=== PATIENT | female | born 1995 | race Caucasian/White ===

== ENCOUNTER 2018-04-05 18:38 | Emergency (ER) | payer BC, OTHER ==
[~2018-04-05] VITALS: Ht 170.2 cm; Wt 78.5 kg
[~2018-04-05 18:38] MED LIST: MECL1TAB42 PO
[2018-04-05 18:45] VITALS: TEMP 36.9; Ht 170.2 cm; Wt 78.5 kg
[2018-04-05] MEDS ORDERED: ONDANSETRON INJ 2 MG/ML 2 ML VIAL IV STA (19:00)
[2018-04-05] MEDS ORDERED: SODIUM CHLORIDE 0.9% 1000ML 1,000 ML IV STA (19:00)
[2018-04-05] MEDS ORDERED: MECLIZINE HCL 25 MG TAB PO STA (19:00)
[2018-04-05] MEDS ORDERED: DIAZEPAM INJ 5 MG/ML 2 ML CARP IV STA (19:06)
[2018-04-05] MEDS ORDERED: ANT25 PO (19:15)
[2018-04-05 19:23] VITALS: O2SAT 98
[2018-04-05 19:30] LABS: BASO % 0.4 %; BASO ABS # 0.03 K/uL (0-0.2); EOS ABS # 0.07 K/uL (0-0.5); HEMATOCRIT 42.8 % (37-47); HEMOGLOBIN 14.7 g/dL (12.0-16.0); IG# 0.01 K/uL (0.00-0.02); LYMPH ABS # 1.77 K/uL (1.2-3.4); MEAN CELL VOLUME 91.8 fL (80-100); MEAN CORPUSCULAR HEMOGLOBIN 31.5 pg (25-34); MEAN CORPUSCULAR HGB CONC 34.3 g/dl (32-36); MEAN PLATELET VOLUME 8.6 fL (7.4-10.4); MONO % 10.6 %; MONO ABS # 0.75 K/uL (0.11-0.59); NEUT % 62.9 %; NEUT ABS # 4.45 K/uL (1.4-6.5); PLATELET COUNT 255 K/uL (130-400); RED CELL DISTRIBUTION WIDTH CV 11.7 % (11.5-14.5); RED CELL DISTRIBUTION WIDTH SD 39.4 fL (36.4-46.3); WHITE BLOOD COUNT 7.08 K/uL (4.8-10.8)
[2018-04-05] MEDS ORDERED: DIAZEPAM 5 MG/ML INJ 10ML VIAL ONE (19:31)
[2018-04-05 19:58] LABS: CALCIUM 9.1 mg/dl (8.5-10.1); CREATININE 0.86 mg/dl (0.60-1.20); POTASSIUM 3.9 mmol/L (3.5-5.1)
--- NOTE | 2018-04-05 20:33 | EMERGENCY ROOM VISIT NOTE ---
History Report prepared by Margaret: Wendy Bailey Under the Supervision of: Dr. Tee Arzate M.D. First contact with patient: 18:48 Chief Complaint: VERTIGO Stated Complaint: VERTIGO,DIZZINESS History of Present Illness The patient is a 22 year old female who presents to the Emergency Room with complaints of constant vertigo beginning sometime last week. She notes she feels as though room is spinning, and is experiencing intermittent difficulty hearing or sensitivity of hearing. The patient states she feels as though she is going to black out, but not has not completely lost consciousness. She notes her symptoms worsen with movement and are relieved when laying down and closing eyes. The patient mentions she is experiencing nausea and vomited last week. She reports fatigue, shaking of her hands, and pressure in her forehead area. She notes Meclizine did not relieve her symptoms. Pt denies LOC, fevers, chills, diaphoresis, neck pain, chest pain, breathing difficulties, abdominal pain, back pain, melena, hematochezia, urinary symptoms, numbness, weakness, lymphadenopathy, rash, numbness, or other complaints. The patient reports she occasionally experiences these symptoms around when she has her period, but can usually work through it. She notes her PCP, Dr. Barlow, gave her a stronger BC pill which helped improve her symptoms for a time. The patient states she had a similar episode a few years back, but her current symptoms are more severe. Source of History: patient Onset: sometime last week Position: head Quality: other (vertigo) Timing: constant Modifying Factors (Worsening): movement Modifying Factors (Relieving): other (relieved when laying down with eyes closed, not relieved by Meclizine) Associated Symptoms: + nausea, + vomiting (last week), + fatigue Note: Associated symptoms: intermittent difficulty hearing or sensitivity of hearing, shaking of hands, pressure in forehead area, feeling as though she will black out. Review of Systems See HPI for pertinent positives and negatives. A total of ten systems were reviewed and were otherwise negative. Past Medical & Surgical Medical Problems: (1) Bronchitis Surgical Problems: (1) Hx of wisdom tooth extraction Family History FHx: breast cancer FHx: diabetes mellitus FHx: gallbladder disease FHx: hypertension Social History Smoking Status: Never Smoker Alcohol Use: none Drug Use: none Marital Status: in relationship Occupation Status: employed Current/Historical Medications Scheduled Control Pills ( Control Pills), 1 TAB PO DAILY Scheduled PRN Lorazepam (Ativan), 1 MG PO Q6H PRN for Dizziness or Vertigo Meclizine HCl (Meclizine HCl), 25 MG PO TID PRN for Dizziness or Vertigo Allergies Uncoded Allergies: BLEACH (Allergy, Unknown, Skin rash, 04/05/18) Physical Exam Vital Signs Date Time Temp Pulse Resp B/P (MAP) Pulse Ox O2 Delivery O2 Flow Rate FiO2 04/05/18 21:35 78 20 116/72 98 04/05/18 20:00 66 18 124/88 98 Room Air 04/05/18 19:44 56 04/05/18 19:23 98 Room Air 04/05/18 18:45 36.9 64 20 146/87 96 Room Air Physical Exam GENERAL: Awake, alert, well appearing, no distress HENT: Normocephalic, atraumatic. TM's normal. Oropharynx unremarkable. EYES: PERRL. EOMI. Normal conjunctiva. Sclera non-icteric. NECK: Supple. No nuchal rigidity. FROM. No bruit. RESPIRATORY: Breath sounds equal. No wheezes. No rhonchi. Normal respiratory effort. CARDIAC: Normal rate. Regular rhythm. No murmurs. No rubs. No JVD. GI: Soft, non distended. No tenderness to palpation. No rebound or guarding. No masses. RECTAL: Deferred. MUSCULOSKELETAL: Unremarkable. No edema. No discoloration. Gross motor strength symmetric. NEURO: Cranial nerves 2-12 grossly intact. Normal sensorium. No sensory or motor deficits noted. Speech normal. No pronator drift. Normal [id number]. Mildly positive Hallpike with looking to the left. No pathologic nystagmus. Lateral nystagmus noted. SKIN: No rash or jaundice noted. LYMPH: No adenopathy. Medical Decision & Procedures Laboratory Results 04/05/18 19:20 Red Blood Count 4.66, Mean Corpuscular Volume 91.8, Mean Corpuscular Hemoglobin 31.5, Mean Corpuscular Hemoglobin Concent 34.3, Mean Platelet Volume 8.6, Neutrophils (%) (Auto) 62.9, Lymphocytes (%) (Auto) 25.0, Monocytes (%) (Auto) 10.6, Eosinophils (%) (Auto) 1.0, Basophils (%) (Auto) 0.4, Neutrophils # (Auto ) 4.45, Lymphocytes # (Auto) 1.77, Monocytes # (Auto) 0.75, Eosinophils # (Auto ) 0.07, Basophils # (Auto) 0.03 04/05/18 19:20 Test 04/05/18 19:20 White Blood Count 7.08 K/uL (4.8-10.8) Red Blood Count 4.66 M/uL (4.2-5.4) Hemoglobin 14.7 g/dL (12.0-16.0) Hematocrit 42.8 % (37-47) Mean Corpuscular Volume 91.8 fL (80-100) Mean Corpuscular Hemoglobin 31.5 pg (25-34) Mean Corpuscular Hemoglobin Concent 34.3 g/dl (32-36) Platelet Count 255 K/uL (130-400) Mean Platelet Volume 8.6 fL (7.4-10.4) Neutrophils (%) (Auto) 62.9 % Lymphocytes (%) (Auto) 25.0 % Monocytes (%) (Auto) 10.6 % Eosinophils (%) (Auto) 1.0 % Basophils (%) (Auto) 0.4 % Neutrophils # (Auto) 4.45 K/uL (1.4-6.5) Lymphocytes # (Auto) 1.77 K/uL (1.2-3.4) Monocytes # (Auto) 0.75 K/uL (0.11-0.59) Eosinophils # (Auto) 0.07 K/uL (0-0.5) Basophils # (Auto) 0.03 K/uL (0-0.2) RDW Standard Deviation 39.4 fL (36.4-46.3) RDW Coefficient of Variation 11.7 % (11.5-14.5) Immature Granulocyte % (Auto) 0.1 % Immature Granulocyte # (Auto) 0.01 K/uL (0.00-0.02) Anion Gap 6.0 mmol/L (3-11) Est Creatinine Clear Calc Drug Dose 108.9 ml/min Estimated GFR () 109.6 Estimated GFR (Non- 94.6 BUN/Creatinine Ratio 15.5 (10-20) Calcium Level 9.1 mg/dl (8.5-10.1) Thyroid Stimulating Hormone (TSH) 0.877 uIu/ml (0.300-4.500) Human Chorionic Gonadotropin, Qual NEG (NEG) Laboratory results reviewed by me Medications Administered Medications (Trade) Dose Ordered Sig/Alok Route Start Time Stop Time Status Last Admin Dose Admin Meclizine HCl (Antivert Tab) 25 mg NOW STAT PO 04/05/18 19:00 04/05/18 19:02 DC 04/05/18 19:32 25 MG Sodium Chloride 1,000 ml @ 999 mls/hr Q1H1M STAT IV 04/05/18 19:00 04/05/18 20:00 DC 04/05/18 19:33 999 MLS/HR Ondansetron HCl (Zofran Inj) 4 mg NOW STAT IV 04/05/18 19:00 04/05/18 19:02 DC 04/05/18 19:32 4 MG Diazepam (Valium Inj) 5 mg STK-MED ONCE .ROUTE 04/05/18 19:31 04/05/18 19:32 DC 04/05/18 19:33 5 MG Lorazepam (Ativan 1MG Home Pack) 1 homepack UD ONCE PO 04/05/18 21:15 04/05/18 21:17 DC 04/05/18 21:29 1 HOMEPACK Ondansetron HCl (ZOFRAN ODT 4MG Home Pack) 1 homepack UD ONCE PO 04/05/18 21:15 04/05/18 21:17 DC 04/05/18 21:29 1 HOMEPACK ECG Per My Interpretation Rate (beats per minute): 59 Rhythm: sinus bradycardia Findings: RBBB (incomplete), other (no ST elevation or depression. no PACs. no PVCs.) ED Course 1850: The patient was evaluated in room B3B. A complete history and physical exam was performed. 1899: Ordered Zofran Inj 4 mg IV, Sodium Chloride 1000 ml @ 999 mls/hr IV, Antivert Tab 25 mg PO. 1905: Ordered Valium Inj 5 mg IV. 2033: Upon reevaluation, the patient is feeling better. 2114: Ordered Ondansetron HCl 1 homepack PO, Lorazepam 1 homepack PO. 2119: I reevaluated the patient. Discussed results and discharge instructions: she verbalized understanding and agreement. The patient is ready for discharge. Medical Decision Prior records/ancillary studies reviewed. Triage Nursing notes reviewed and agree them. The patient's history was concerning for dizziness. Differential diagnosis: Etiologies such as benign positional vertigo, tumor, infection, hypoglycemia, electrolyte abnormalities, cardiac sources, intracerebral event, toxicologic, neurologic, as well as others were entertained. Physical examination: As above. No pathologic nystagmus. ER treatment provided: IV hydration over one hour IV Zofran Oral meclizine IV Valium 5 mg On reassessment the patient felt well. She ambulated without difficulty. Diagnostics interpretation by me: ECG: Normal sinus rhythm without ischemic change or evidence of dysrhythmia. Laboratory studies: The labs revealed a normal CBC and chemistry panel. Imaging studies: Deferred By the evaluation outlined above other emergent etiologies such as those listed in the differential, as well as others, were deemed relatively unlikely. The patient has had intermittent dizziness on and off for several years. By the history and physical examination this seems to be most consistent with a positional vertigo. She has been prescribed meclizine by her primary physician as well as the emergency department in the past. Prior CT imaging did not reveal any abnormalities. As the patient responded very well to intervention here advanced diagnostic imaging was felt to be unnecessary. I discussed conservative management with her. The patient feels comfortable. If she worsens in any way or symptoms persist she will come back to the emergency department. I did discuss referral to her primary physician as well as ENT given the duration of her paroxysmal symptoms. She may benefit from an vestibular rehab program. I gave my usual and customary discussion regarding this issue. The patient was educated about the findings as listed above. All questions were answered and the patient was pleased with the treatment. Return instructions were outlined and the patient was discharged in stable condition. The patient was referred to her primary physician for follow-up for a recheck of the current condition. [place] Drug Monitoring Program Search Results: patient reviewed within database, no issues identified Medication Reconcilliation Current Medication List: was personally reviewed by me Blood Pressure Screening Patient's blood pressure: Normal blood pressure Blood pressure disposition: Did not require urgent referral Impression Primary Impression: Dizziness Scribe Attestation The scribe's documentation has been prepared under my direction and personally reviewed by me in its entirety. I confirm that the note above accurately reflects all work, treatment, procedures, and medical decision making performed by me. Departure Information Dispostion Home / Self-Care Prescriptions Lorazepam (ATIVAN) 1 Mg Tab 1 MG PO Q6H Y for Dizziness or Vertigo, #10 TAB Prov: Tee Arzate MD 04/05/18 Referrals Sneha Barlow D.O. (PCP) Forms HOME CARE DOCUMENTATION FORM, IMPORTANT VISIT INFORMATION, WORK / SCHOOL INSTRUCTIONS Patient Instructions My [facility] Additional Instructions DIZZINESS INSTRUCTIONS: DO NOT drive, drink alcohol, operate machinery, or perform dangerous activities today. You were given medications in the ER that can affect your ability to safely function or operate a vehicle. You should not drive or perform any dangerous activities until your symptoms resolve. Ativan 1mg: Take 1 pill every 6-8 hours as needed for dizziness or vertigo. Avoid alcohol, operating machinery or dangerous equipment, working on ladders or roofs, DRIVING, or situations where being under the influence may be dangerous Continue your Meclizine 25mg: Take 1 pill every 8 hours as needed for dizziness or vertigo. Avoid alcohol, operating machinery or dangerous equipment, working on ladders or roofs, DRIVING, or situations where being under the influence may be dangerous Zofran(odansetron) tablets 4mg: Take one and allow it to dissolve in your mouth every four to six hours as needed for nausea or vomiting. Rest and drink plenty of fluids as tolerated. Continue current medications. If you have nausea or vomiting: Once your stomach is settled start with a clear liquid diet (jello, soup broth, etc.) and then advance as tolerated. You should avoid full, heavy meals for about 24 hrs from the time your symptoms resolved. Return to the ER immediately for worsening or persistent dizziness, vomiting, headache, fevers, chest pains, difficulty breathing, black or bloody stools, slurred speech, numbness, weakness, visual changes, worsening of your condition , or as needed. Follow up with your primary physician in 1-2 days for a recheck of your current condition. Follow-up with ENT regarding the recurrent dizziness. The number is listed below under Dr. Gar.
[2018-04-05] MEDS ORDERED: ATIVAN 1MG HOMEPACK PO ONE (21:15)
[2018-04-05] MEDS ORDERED: ONDANSETRON HOME PACK 4MG OD TAB PO ONE (21:15)
[2018-04-05] MEDS ORDERED: ATV/1 PO (21:20)
[2018-04-05 21:35] VITALS: BP 116/72; PULSE 78; O2SAT 98
[2018-04-05] MEDS ORDERED: BCPILLS PO (23:52)
== END 2018-04-05 21:36 | disposition home or self-care (01) ==
LOC: C.EDB 18:39
DX: R42 Dizziness and giddiness (principal); R53.1 Weakness; R51 Headache; Z79.3 Long term (current) use of hormonal contraceptives; Z91.048 Other nonmedicinal substance allergy status

== ENCOUNTER → 2018-04-20 | Outpatient (CLI) | payer OTHER ==
[~2018-04-20] MED LIST changes: +ANT25 PO; +BCPILLS PO; +GADAVIST IV PRN; -MECL1TAB42 PO
--- NOTE | 2018-04-20 13:10 | DIAGNOSTIC IMAGING REPORT ---
BRAIN COMBO FOR IAC HISTORY: 22 years-old Female R42 VertigoPATIENT HAS NONSPECIFIC VERTIGO. PLEASE RULE OUT ANY acute dizziness with gait disturbance COMPARISON: None available TECHNIQUE: Multiplanar multisequence MRI of the brain was obtained both with and without the use of 7.5 amount Gadavist utilizing internal auditory canal protocol FINDINGS: Large field of view medical care manager localizer images demonstrate no gross abnormality. No restricted diffusion to suggest acute or subacute infarction. Sagittal T1 images are mildly motion degraded. Corpus callosum, brainstem, optic chiasm, pituitary and pineal glands appear unremarkable on the sagittal T1 series. No cerebellar tonsillar herniation. No acute intracranial hemorrhage, midline shift, abnormal extra-axial collections, hydrocephalus or intracranial mass. The 7th and 8th cranial nerves appear unremarkable bilaterally. Vascular loop of the anterior inferior cerebellar artery extends less than 50% into the right internal auditory canal. No cerebellar pontine angle mass lesion identified. Bilateral 5th cranial nerves are within normal limits. There is no abnormal intra-axial or extra-axial enhancement identified. Orbits are unremarkable. Mastoid air cells are generally clear. Minimal polypoid mucosal thickening about the inferior left maxillary sinus. The remaining paranasal sinuses are clear. The skull and soft tissues are within normal limits. IMPRESSION: 1. No acute intracranial abnormality or abnormal enhancement identified. 2. Unremarkable appearance of the bilateral 7th and 8th cranial nerves. 3. Minimal left maxillary sinus disease. The above report was generated using voice recognition software. It may contain grammatical, syntax or spelling errors. Electronically signed by: Delon Carter M.D. 04/20/2018 1:08 PM Dictated Date/Time: 04/20/2018 12:59 PM
== END | disposition home or self-care (01) ==
LOC: C.MRI 11:33
PROVIDERS: ATTEND Physician Assistant
DX: R42 Dizziness and giddiness (principal)

== ENCOUNTER 2024-03-06 11:00 | Inpatient (IN) ==
[2024-03-06] MEDS ORDERED: LIDOCAINE 1% LOCAL 20 ML VIAL INFIL PRN (11:13)
[2024-03-06] MEDS ORDERED: OXYTOCIN 30 UNITS/NSS 30 UNITS/500 ML BAG IV PRN (11:13)
--- NOTE | 2024-03-06 11:17 | History & Physical Report ---
Date of Service March 06, 2024 Assessment & Plan (1) Supervision of normal first : Plan: Admit to L&D. Irena, EFM. Labs/IV. Thinking she does not want an epidural at this point. History of Present Illness Chief Complaint: labor Primary Care Provider: Sneha Barlow, DO 28yo @ 39 3/7, castillo all morning, has had some vaginal blood, no leaking fluid. + movement. Allergies Allergy/AdvReac Type Severity Reaction Status Date / Time Bleach (Sodium Hypochlorite) Allergy Unknown Verified 02/27/24 11:14 No Known Drug Allergies Allergy Unknown Verified 02/27/24 11:14 BLEACH Allergy Unknown Skin rash Uncoded 02/27/24 11:14 Home Medications Medication Instructions Recorded Confirmed Type venlafaxine 150 mg 150 mg PO DAILY 01/27/20 02/27/24 History capsule,extended release 24 hr doxylamine succinate 25 mg tablet 25 mg PO Q6H PRN 09/02/23 02/27/24 History (Unisom (doxylamine)) breast pump #1 ea 11/21/23 02/27/24 Rx Patient History Medical History (Updated 08/19/23 @ 15:18 by Joann Rosas) Varicella vaccination Vertigo Surgical History (Updated 08/19/23 @ 15:18 by Joann Rosas) Status post surgery benign lump removed from leg [place] teeth extracted Family History (Updated 08/19/23 @ 15:09 by Joann Rosas) Grandmother (Maternal) Hypertension Diabetes Breast cancer Brother Asthma Grandfather (Maternal) Diabetes Stroke Grandfather (Paternal) Dementia Uncle Myocardial infarction Diabetes Denies family history of Ovarian cancer Colorectal cancer Social History (Updated 08/19/23 @ 15:10 by Joann Rosas) Smoking Status: Never smoker Do You Dip or Chew Tobacco: No; marital status: Single marital status details: Margarita Tejada (43) [phone] Current Living Situation: Parent Current Living Situation Comment: lives with mother, dogs current occupational status: employed current occupation: [employer] Feels Safe at Home: Yes Review of Systems All systems reviewed & are unremarkable except as noted in HPI & below Physical Exam Physical Exam: FHT Cat 1 Irena Q 4 SVE 6-7/100/-2, bulging membranes, cephalic Constitutional: WD/WN, vitals as above Respiratory: normal respiratory effort, lungs clear to auscultation no respiratory distress Cardiovascular: Rate/Rhythm: regular rate and regular rhythm Gastrointestinal (Abdomen): Inspection/Auscultation: abdomen normal to inspection Percussion/Palpation: abdomen soft; abdomen nontender Gravid. No s/s chorio or abruption. Skin: no rashes, warm and dry Psychiatric: A+Ox3, euthymic affect Results & Data Vital Signs (Past 12 Hours) Vital Signs Pulse BP 03/06/24 11:06 54 L 176/94 H Coding Level of Care Code None Diagnoses Supervision of normal first Z34.00
[2024-03-06] MEDS: LACTATED RINGER'S 1,000 ML IV PRN (11:25)
[2024-03-06 11:48] LABS: Hematocrit (blood only) 40.2 % (37.0-47.0); Hemoglobin 14.1 g/dl (12.0-16.0); Mean Corpuscular Hemoglobin 31.4 pg (25.0-34.0); Mean Corpuscular Hgb Conc 35.1 g/dL (32.0-36.0); Mean Corpuscular Volume 89.5 fL (80.0-100.0); Mean Platelet Volume 9.5 fL (9.4-12.4); Platelet Count 261 K/uL (130-400); RDW Coefficient of Variation 11.8 % (11.5-14.5); Red Blood Count 4.49 M/uL (4.20-5.40); White Blood Count 18.36 K/ul (4.8-10.8)
[2024-03-06 12:06] LABS: Alanine Aminotransferase 12 U/L (7-52); Albumin Globulin Ratio 1.1 (0.9-2); Albumin Level 3.5 gm/dl (3.4-5.0); Alkaline Phosphatase 158 U/L (34-104); Anion Gap 9 (3-11); Aspartate Aminotransferase 16 U/L (13-39); BUN Creatinine Ratio 15.8 (10-20); Bilirubin,Total 0.4 mg/dl (0.2-1.0); Blood Urea Nitrogen 9 mg/dl (6-23); Carbon Dioxide 21 mmol/L (21-32); Chloride 104 mmol/L (98-107); Est GFR (African American) 144.2 ml/min; Est GFR (Non-African American) 124.4 ml/min; Globulin 3.1 gm/dl (2.5-4.0); Glucose 90 mg/dl (70-99(Fasting)); Potassium 3.7 mmol/L (3.5-5.1); Sodium 134 mmol/L (136-145); Total Protein 6.6 gm/dl (6.0-8.3)
[2024-03-06] MEDS: ONDANSETRON INJ 2 MG/ML 2 ML VIAL IV PRN (13:50)
[2024-03-06] MEDS: CALCIUM CARBONATE 500 MG CHEWABLE TAB PO PRN (15:45)
--- NOTE | 2024-03-06 15:50 | Anesthesiology Consultation ---
Date of Service March 06, 2024 Assessment & Plan Chart Review Chart Review: Acceptable Risk for Labor Epidural Consults Requested none ASA ASA2 Proposed Anesthesia Anesthesia Type: Labor Epidural Risk / Benefits Reviewed With: PT / POA / Parent / Guardian, Accepts Plan and Informed Consent Obtained History Height/Weight Height: 5 ft 7 in Weight: 104.236 kg Allergies Allergy/AdvReac Type Severity Reaction Status Date / Time Bleach (Sodium Hypochlorite) Allergy Unknown Verified 02/27/24 11:14 No Known Drug Allergies Allergy Unknown Verified 02/27/24 11:14 BLEACH Allergy Unknown Skin rash Uncoded 02/27/24 11:14 Medications Home Medications Medication Instructions Recorded Confirmed Last Taken breast pump #1 ea 11/21/23 02/27/24 Unknown venlafaxine 75 mg capsule,extended 75 mg PO DAILY 03/06/24 03/06/24 03/06/24 09:00 release 24 hr Active Medications Generic Name Dose Route Start Last Admin Trade Name Freq PRN Reason Stop Dose Admin Calcium Carbonate 1,500 mg 03/06/24 15:27 03/06/24 15:45 Calcium Carbonate 500 Mg Chewable Tab PO 04/05/24 15:26 1,500 mg Q6 PRN Administration Indigestion Lactated Ringer's 1,000 mls @ 125 mls/hr 03/06/24 11:13 03/06/24 12:34 Lr IV 03/08/24 11:12 125 mls/hr .Q8H PRN Administration L&D Protocol Protocol Ondansetron HCl 4 mg 03/06/24 13:07 03/06/24 13:50 Ondansetron Inj 2 Mg/Ml 2 Ml Vial IV 04/05/24 13:06 4 mg Q6H PRN Administration Nausea And Vomiting Past Medical History Medical History Varicella vaccination Vertigo Exercise / Class Metabolic Activity II 4-5 Yardwork/Stairs/Walk up hill Past Family History Family History Grandmother (Maternal) Hypertension Diabetes Breast cancer Brother Asthma Grandfather (Maternal) Diabetes Stroke Grandfather (Paternal) Dementia Uncle Myocardial infarction Diabetes Denies family history of Ovarian cancer Colorectal cancer Past Surgical History Surgical History Status post surgery benign lump removed from leg [place] teeth extracted Past Anesthesia History No Hx of Anesthesia Complications and No Family Hx of Anesthesia Complications History of PONV No Hx of PONV and No Hx of Motion Sickness Social History Smoking Status: Never smoker Hx Alcohol Use: No Hx Substance Use: No substance use type: does not use Physical Exam Vital Signs Last Vital Signs Temp 98.4 F 03/06/24 11:40 Pulse 50 L 03/06/24 12:01 Resp 18 03/06/24 11:40 BP 156/93 H 03/06/24 12:01 ENMT Mouth: no dentition abnormality Thyromental Distance: > or= 3.5 Finger Breadths Mallampati Class: II Neck normal visual inspection Respiratory normal respiratory effort Auscultation: lungs clear to auscultation bilaterally Cardiovascular Rate/Rhythm: regular rate and regular rhythm Testing Laboratory Results 03/06/24 11:21 03/06/24 11:21
[2024-03-06] MEDS: fentANYL 2 MCG/ML BUPIVacaine 0.125%-NSS 100ML BAG ONE (16:09)
[2024-03-06] MEDS ORDERED: SODIUM CHLORIDE 0.9% PF INJ 10 ML VIAL EPI PRN (16:10)
[2024-03-06] MEDS: BUPIVACAINE 0.25% PF 30 ML VIAL EPI STA (16:10)
[2024-03-06] MEDS ORDERED: ePHEDrine sulfate 50 MG/ML AMP IV PRN (16:10)
[2024-03-06] MEDS ORDERED: diphenhydrAMINE 50 MG/ML VIAL IV PRN (16:10)
[2024-03-06] MEDS: LIDOCAINE 2%/EPINEPHRINE 1:200,000 20 ML PF EPI STA (16:10)
[2024-03-06] MEDS ORDERED: ONDANSETRON INJ 2 MG/ML 2 ML VIAL IV PRN (16:10)
[2024-03-06] MEDS ORDERED: fentaNYL citrate PF 100 MCG/2 ML VIAL EPI PRN (16:10)
[2024-03-06] MEDS ORDERED: ROPIVACAINE 0.5% PF 5 MG/ML 20 ML VIAL EPI PRN (16:10)
[2024-03-06] MEDS ORDERED: NALOXONE HCL 1 MG in SODIUM CHLORIDE 0.9% 1,000 ML IV PRN (16:10)
[2024-03-06] MEDS ORDERED: LIDOCAINE 2% MPF LOCAL 5 ML VIAL EPI PRN (16:10)
[2024-03-06] MEDS ORDERED: BUPIVACAINE 0.25% PF 30 ML VIAL EPI PRN (16:10)
[2024-03-06] MEDS ORDERED: NALOXONE HCL 0.4 MG/1 ML VIAL/CARP IV PRN (16:10)
[2024-03-06] MEDS ORDERED: NALBUPHINE HCL 5 MG in SYRINGE 0 ML IV PRN (16:10)
[2024-03-06] MEDS: ePHEDrine sulfate 50 MG/ML AMP ONE (16:21)
[2024-03-06] MEDS: BUPIVACAINE 0.25% PF 30 ML VIAL ONE (16:21)
[2024-03-06] MEDS: SODIUM CHLORIDE 0.9% PF INJ 10 ML VIAL ONE (16:21)
[2024-03-06] MEDS: LIDOCAINE 2%/EPINEPHRINE 1:200,000 20 ML PF ONE (16:21)
[2024-03-06] MEDS: fentaNYL citrate PF 100 MCG/2 ML VIAL ONE (16:21)
[2024-03-06] MEDS: fentaNYL citrate PF 100 MCG/2 ML VIAL EPI STA (17:23)
[2024-03-06] MEDS: SODIUM CHLORIDE 0.9% PF INJ 10 ML VIAL EPI STA (17:23)
[2024-03-06] MEDS: OXYTOCIN 30 UNITS/NSS 30 UNITS/500 ML BAG IV PRN (18:48)
--- NOTE | 2024-03-06 19:09 | Labor Progress Brief Note ---
Date of Service March 06, 2024 Subjective Comfortable with epidural. FHT 140s, mod suhail, +accels - has had deceleration with repositioning. Patient positioned differently, cervix exam showed 9/100/0 with bulging forebag. This was ruptured for meconium stained fluid, FHT returned to 150s after AROM. Continue labor. Assessment & Plan Admission and Anticipated Discharge Date Admission Date: March 06, 2024 Results & Data Vital Signs (Past 12 Hours) Vital Signs Temp Pulse Resp BP Pulse Ox 03/06/24 19:06 98 03/06/24 19:06 77 03/06/24 19:02 78 03/06/24 19:02 129/77 03/06/24 19:01 98 03/06/24 19:01 62 03/06/24 18:56 99 03/06/24 18:56 64 03/06/24 18:51 97 03/06/24 18:51 76 03/06/24 18:51 134/80 03/06/24 18:46 98 03/06/24 18:46 72 03/06/24 18:42 63 03/06/24 18:42 127/77 03/06/24 18:41 97 03/06/24 18:41 70 03/06/24 18:36 99 03/06/24 18:36 62 03/06/24 18:31 98 03/06/24 18:31 66 03/06/24 18:31 65 03/06/24 18:31 130/82 03/06/24 18:26 97 03/06/24 18:26 62 03/06/24 18:21 99 03/06/24 18:21 63 03/06/24 18:21 60 03/06/24 18:21 129/76 03/06/24 18:16 99 03/06/24 18:16 66 03/06/24 18:11 99 03/06/24 18:11 59 L 03/06/24 18:11 134/78 03/06/24 18:06 98 03/06/24 18:06 67 03/06/24 18:01 97 03/06/24 18:01 64 03/06/24 18:01 140/87 03/06/24 18:00 16 03/06/24 18:00 16 03/06/24 17:56 98 03/06/24 17:56 66 03/06/24 17:51 97 03/06/24 17:51 67 03/06/24 17:51 62 03/06/24 17:51 131/74 03/06/24 17:46 97 03/06/24 17:46 72 03/06/24 17:41 96 03/06/24 17:41 64 03/06/24 17:41 107/57 L 03/06/24 17:36 97 03/06/24 17:36 74 03/06/24 17:31 97 03/06/24 17:31 59 L 03/06/24 17:31 114/58 L 03/06/24 17:30 18 03/06/24 17:30 18 03/06/24 17:26 97 03/06/24 17:26 59 L 03/06/24 17:22 57 L 03/06/24 17:22 115/59 L 03/06/24 17:21 97 03/06/24 17:21 59 L 03/06/24 17:16 98 03/06/24 17:16 60 03/06/24 17:11 98 03/06/24 17:11 58 L 03/06/24 17:11 58 L 03/06/24 17:11 123/56 L 03/06/24 17:07 94 03/06/24 17:07 70 03/06/24 17:06 96 03/06/24 17:06 98 H 03/06/24 17:01 96 03/06/24 17:01 67 03/06/24 17:01 133/93 03/06/24 17:00 18 03/06/24 17:00 36.8 C 18 03/06/24 16:56 97 03/06/24 16:56 63 03/06/24 16:51 97 03/06/24 16:51 67 03/06/24 16:51 60 03/06/24 16:51 131/73 03/06/24 16:46 98 03/06/24 16:46 60 03/06/24 16:41 98 03/06/24 16:41 74 03/06/24 16:41 71 03/06/24 16:41 132/77 03/06/24 16:36 99 03/06/24 16:36 68 03/06/24 16:31 97 03/06/24 16:31 66 03/06/24 16:26 97 03/06/24 16:26 67 03/06/24 16:23 93 03/06/24 16:23 75 03/06/24 16:21 99 03/06/24 16:21 69 03/06/24 16:20 72 03/06/24 16:20 130/72 03/06/24 16:17 73 03/06/24 16:17 123/65 03/06/24 16:16 98 03/06/24 16:16 73 03/06/24 16:14 75 03/06/24 16:14 127/69 03/06/24 16:11 98 03/06/24 16:11 72 03/06/24 16:11 77 03/06/24 16:11 127/73 03/06/24 16:08 64 03/06/24 16:08 127/62 03/06/24 16:07 68 03/06/24 16:07 142/68 H 03/06/24 16:06 98 03/06/24 16:06 67 03/06/24 16:06 63 03/06/24 16:06 184/86 H 03/06/24 16:03 65 03/06/24 16:03 131/81 03/06/24 16:02 64 03/06/24 16:02 190/91 H 03/06/24 16:01 99 03/06/24 16:01 65 03/06/24 15:59 58 L 03/06/24 15:59 147/74 H 03/06/24 15:58 55 L 03/06/24 15:58 176/76 H 03/06/24 15:56 100 03/06/24 15:56 58 L 03/06/24 15:51 99 03/06/24 15:51 58 L 03/06/24 12:01 50 L 03/06/24 12:01 156/93 H 03/06/24 12:01 56 L 03/06/24 12:01 171/99 H 03/06/24 11:40 36.9 C 54 L 18 176/94 H 03/06/24 11:30 18 03/06/24 11:30 36.8 C 18 03/06/24 11:06 54 L 176/94 H Coding Level of Care Code None
[2024-03-06] MEDS: FAMOTIDINE 20 MG TAB PO PRN (19:38)
[2024-03-06] MEDS: fentANYL 2 MCG/ML BUPIVacaine 0.125%-NSS 100ML BAG EPI PRN (22:58)
--- NOTE | 2024-03-07 02:06 | Delivery Summary ---
Vaginal Delivery Summary Date of Service March 07, 2024 Vaginal Delivery Summary and 2nd Degree LAC Vaginal Delivery Summary: Pre-delivery diagnoses: 28yo @ 39 4/7, spontaneous labor Post-delivery diagnoses: same Procedure: spontaneous vaginal delivery Surgeon: Stephania Davis DO Complications: none Findings: Viable female . Apgars: 6/8. Weight pending, please see nursery records. Estimated QBL: 132cc Description of delivery: The patient progressed to complete with epidural anesthesia. She then began to push. She spontaneously vaginally delivered a viable from the cephalic presentation. The head delivered in YOAN position. Nuchal x 1, reduced. The anterior shoulder delivered, followed by the posterior shoulder, followed by the body. The baby was placed on mother's abdomen and the cord was doubly clamped and cut. A segment was retained for cord gases. Cord blood was obtained. The placenta was delivered spontaneously intact with a 3-vessel cord. The uterus and vagina were swept of clots and debris. IV pitocin was given. The uterus became firm. The cervix, vagina, and perineum were inspected and 2nd degree laceration was noted. One figure of eight stitch of 3-0 Chromic to pull together the tissue above anal sphincter, followed by repair of the tear with 3-0 Vicryl. Excellent hemostasis was observed. The mother and baby are recovering in stable and good condition in the room. Sponge, needle and instrument counts were correct x 2. [facility] Delivery Charge Vaginal Delivery Codes: 18031 global code for the antepartum, delivery, and post- Delivery Type Details: and 2nd Degree LAC
[2024-03-07] MEDS: OXYTOCIN 30 UNITS/NSS 30 UNITS/500 ML BAG IV PRN (02:12)
[2024-03-07] MEDS ORDERED: HYDROCORTISONE ACETATE 25 MG SUPP PR PRN (02:15)
[2024-03-07] MEDS ORDERED: oxyCODONE/ACETAMINOPHEN 5mg/325mg TAB PO PRN (02:15)
--- NOTE | 2024-03-07 02:32 | Anesthesia Procedure Note ---
Date of Service March 07, 2024 Anesthesia Post Epidural Note Vital Signs Vital Signs: Temp Pulse Resp BP Pulse Ox O2 Del Method 98.4 F 93 H 20 135/67 97 Room Air 03/07/24 00:48 03/07/24 02:31 03/07/24 01:30 03/07/24 02:31 03/07/24 01:51 03/06/24 19:13 Pain Intensity Lower Abdomen: Pain Intensity: 3 Notes Mental Status: alert / awake / arousable and participated in evaluation Nausea / Vomiting: adequately controlled Pain: adequately controlled Airway Patency, RR, SpO2: stable & adequate BP & HR: stable & adequate Hydration State: stable & adequate Neuraxial Anesthesia: was administered and sensory block is resolving Anesthetic Complications: no major complications apparent and Pt Satisfied with anesthetic care Epidural: Removed without complications and With tip intact
[2024-03-07] MEDS: DIPHTHER/TETAN/PERTUS Vaccine (Tdap, Adol/Adult) 0.5mL IM ONE (04:30)
[2024-03-07] MEDS: BENZOCAINE 20% SPRY 85 APPLN/85 GM CAN EXT PRN (04:30)
[2024-03-07] MEDS: ACETAMINOPHEN 325 MG TAB PO PRN (05:15)
[2024-03-07] MEDS: IBUPROFEN 600 MG TAB PO PRN (05:17)
[2024-03-07] MEDS: VENLAFAXINE HCL XR 75 MG CAPXR PO SCH (08:33)
[2024-03-07] MEDS: DOCUSATE SODIUM 100 MG CAP PO SCH (08:33)
[2024-03-07] MEDS: PRENATAL VITAMIN 1 TAB PO SCH (08:33)
--- NOTE | 2024-03-08 06:15 | Obstetrical Progress Note ---
Date of Service <Brooks Magallon DO - Last Filed: 03/08/24 07:19> March 08, 2024 Assessment & Plan <Brooks Magallon DO - Last Filed: 03/08/24 07:19> (1) Encounter for assessment: Patient is PPD 1 s/p and doing well - Eating well, voiding well, ambulating well - vitals reviewed and within normal limits - pain well controlled with analgesics - OOB, ambulation, diet progression as tolerated - Blood type: O+, GBS neg, rubella immune - Plan to discharge tomorrow - After discharge, 6 week follow up with OB visit type: exam and care immediately after delivery Qualified Code(s): Z39.0 - Encounter for care and examination of mother immediately after delivery <Filomena Diggs MD, FACOG - Last Filed: 03/08/24 07:26> (1) Encounter for assessment: Subjective <Brooks Magallon DO - Last Filed: 03/08/24 07:19> 28 yo post- day 1 s/p Ambulation: ambulating normally Voiding: no voiding problems Passing Gas:: Yes Diet Tolerance:: regular diet Lochia:: Small Feeding Type:: breast feeding Current Pain Level: 4/10 when ambulating Resting comfortably this AM in NAD. Denies PALACIOS, CP, SOB, N/V/D, LE pain/swelling. Physical Exam <Brooks Magallon DO - Last Filed: 03/08/24 07:19> General: patient resting comfortably, NAD, non-toxic in appearance, answers questions appropriately. Skin: warm, dry, intact HEENT: NC/AT, anicteric sclera, conjunctiva without injection, moist mucus membranes. Heart: +S1/S2, regular, no m/r/g Lungs: equal air entry bilaterally, no rales/rhonchi/wheezes Abd: +BS, soft, NT/ND, uterine fundus firm at umbilicus Ext: warm, no clubbing/cyanosis or edema, Gordy's neg. Neuro: nonfocal, speech intact, no facial droop, moving all extremities. Results & Data <Brooks Magallon DO - Last Filed: 03/08/24 07:19> Vital Signs (Past 12 Hours) Vital Signs Temp Pulse Resp BP Pulse Ox O2 Del Method 03/07/24 23:40 36.7 C 70 18 117/72 96 Room Air 03/07/24 20:00 36.6 C 76 18 120/72 96 Room Air Supervising Physician <Filomena Diggs MD, FACOG - Last Filed: 03/08/24 07:26> Co-Signing Physician Notes Resident Physician Supervision Note: I was present with Dr. Magallon during the history and exam. I discussed the case with the resident and agree with the findings and plan as documented in the note. Any exceptions or clarifications are listed here: stable doing well. abd soft ff 2 down nt, nt calves. ppd#1 routine care. Documented By: Filomena Diggs MD, FACOG Resident Activity Tracking <Brooks Magallon DO - Last Filed: 03/08/24 07:19> Resident Involvement: Resident Care Provided Care Provided: OB Delivery
[2024-03-08 08:53] LABS: Hematocrit (blood only) 31.8 % (37.0-47.0); Hemoglobin 10.9 g/dl (12.0-16.0)
[2024-03-08] MEDS: bisacodyL 5 MG TABEC PO SCH (19:30)
[2024-03-09] MEDS ORDERED: bisacodyL 10 MG SUPP PR PRN
[2024-03-09 02:51] VITALS: RESP 18
[2024-03-09 02:53] VITALS: BP 136/86; TEMP 98.4; O2SAT 97
--- NOTE | 2024-03-09 06:19 | Obstetrical Progress Note ---
Date of Service <Brooks Magallon DO - Last Filed: 03/09/24 07:20> March 09, 2024 Assessment & Plan <Brooks Magallon DO - Last Filed: 03/09/24 07:20> (1) Encounter for assessment: Patient is PPD 2 s/p and doing well - Eating well, voiding well, ambulating well - vitals reviewed and within normal limits - pain well controlled with analgesics - OOB, ambulation, diet progression as tolerated - Blood type: O+, GBS neg, rubella immune - Plan to discharge today - After discharge, 6 week follow up with OB visit type: exam and care immediately after delivery Qualified Code(s): Z39.0 - Encounter for care and examination of mother immediately after delivery <Geetha Lopez MD, FACOG - Last Filed: 03/09/24 07:29> (1) Encounter for assessment: Subjective <Brooks Magallon DO - Last Filed: 03/09/24 07:20> 28 yo post- day 2 s/p Ambulation: ambulating normally Voiding: no voiding problems Passing Gas:: Yes Diet Tolerance:: regular diet Lochia:: Small Feeding Type:: breast feeding Current Pain Level: 4-5/10 Resting comfortably this AM in NAD. Denies PALACIOS, CP, SOB, N/V/D, LE pain/swelling. Physical Exam <Brooks Magallon DO - Last Filed: 03/09/24 07:20> General: patient resting comfortably, NAD, non-toxic in appearance, answers questions appropriately. Skin: warm, dry, intact HEENT: NC/AT, anicteric sclera, conjunctiva without injection, moist mucus membranes. Heart: +S1/S2, regular, no m/r/g Lungs: equal air entry bilaterally, no rales/rhonchi/wheezes Abd: +BS, soft, NT/ND, uterine fundus firm at umbilicus Ext: warm, no clubbing/cyanosis or edema, Gordy's neg. Neuro: nonfocal, speech intact, no facial droop, moving all extremities. Results & Data <Brooks Magallon DO - Last Filed: 03/09/24 07:20> Vital Signs (Past 12 Hours) Vital Signs Temp Pulse Resp BP Pulse Ox O2 Del Method 03/08/24 22:45 36.9 C 62 18 136/86 97 Room Air 03/08/24 19:22 36.6 C 69 18 139/83 98 Room Air Supervising Physician <Geetha Lopez MD, FACOG - Last Filed: 03/09/24 07:29> Co-Signing Physician Notes Resident Physician Supervision Note: I was present with [Name of resident] during the history and exam. I discussed the case with the resident and agree with the findings and plan as documented in the note. Any exceptions or clarifications are listed here: [None] Documented By: Geetha Lopez MD, FACOG Resident Activity Tracking <Brooks Magallon DO - Last Filed: 03/09/24 07:20> Resident Involvement: Resident Care Provided Care Provided: OB Delivery
[2024-03-09 13:33] VITALS: PULSE 69
== END 2024-03-09 13:00 | disposition home or self-care (01) | DRG 807 ==
LOC: OPB 11:00 → 4S1 11:01 → 4E2 03-07 04:55